=== PATIENT | male | born 1945 | race Caucasian/White ===

== ENCOUNTER → 2020-05-04 | Outpatient (CLI) | payer MEDICARE, OTHER ==
--- NOTE | 2020-05-04 08:28 | RAD ---
ABDOMEN LTD History: Abnormal bilirubin Comparison: None. Findings: Multiple sonographic images of the abdomen are submitted. Hepatic echotexture is within normal limits. Right lobe of liver measured 14.3 cm longitudinal. There is segmental visualization of the inferior vena cava. There has been cholecystectomy. Common bile duct is within normal limits at 0.3 cm. Right kidney measures 11.7 x 5.8 x 6.8 cm, no hydronephrosis. There is no abnormality of the visualized pancreas. Impression: 1. No abnormality is demonstrated. There has been cholecystectomy. Electronically signed by: Dalton Jackson MD (05/04/2020 8:25 AM) [id number]
== END | disposition home or self-care (01) ==
LOC: US 08:25
PROVIDERS: ATTEND Family Medicine
DX: E80.6 Other disorders of bilirubin metabolism (principal)
CPT/HCPCS: 76705